=== PATIENT | female | born 1970 | race Caucasian/White ===

== ENCOUNTER 2017-11-18 06:58 | Day surgery (SDC) | payer MEDICAID ==
[2017-11-18] MEDS ORDERED: CEFAZOLIN 1 GM/50 ML (PMX) 50 ML IVPB (09:53)
[2017-11-18] MEDS: CEFAZOLIN 1 GM/50 ML (PMX) 50 ML IVPB (10:16)
[2017-11-18] MEDS: SOD CHLORIDE 0.9% 1,000 ML IV (10:20)
[2017-11-18] MEDS: DIPHENHYDRAMINE 50 MG INJ (10:22)
[2017-11-18] MEDS: LIDOCAINE 1%/EPI 30 ML INJ (10:31)
[2017-11-18] MEDS: FENTAnyl 50 MCG/ML VIAL (10:33)
[2017-11-18] MEDS: POLYMYXIN/BACITRACIN 1L IRRIG IRR (10:40)
[2017-11-18] MEDS: HEPARIN 1000 UNITS/ML 10 ML INJ (10:45)
[2017-11-18] MEDS ORDERED: HYDROCODONE/APAP (5/325) TAB PO (11:30)
== END 2017-11-18 13:55 | disposition home or self-care (01) ==
LOC: SDS 06:58
DX: C50.912 Malignant neoplasm of unspecified site of left female breast (principal)
CPT/HCPCS: 36561; 76942; 93306

== ENCOUNTER 2017-12-03 20:13 | Emergency (ER) | payer MEDICAID ==
[2017-12-04] MEDS: ACETAMINOPHEN 500 MG TAB PO (01:00)
[2017-12-04] MEDS: ONDANSETRON 4 MG INJ IV (01:01)
[2017-12-04] MEDS: SOD CHLORIDE 0.9% 500 ML IV (01:02)
[2017-12-04] MEDS: KETOROLAC 30 MG INJ IV (01:02)
[2017-12-04] MEDS: SOD CHLORIDE 0.9% 1,000 ML IV ×2 (01:02)
[2017-12-04] MEDS: HYDROmorphONE 0.5 MG/0.5 ML SYG IV (01:24)
[2017-12-04 01:36] LABS: ABNORMAL IP MESSAGE 1; HEMATOCRIT 33.9 % (37.0-47.0); HEMOGLOBIN 11.3 g/dl (12.0-16.0); MEAN CORPUSCULAR HEMOGLOBIN 30.4 pg (29.0-33.0); MEAN CORPUSCULAR HGB CONC 33.3 g/dl (32.0-37.0); MEAN CORPUSCULAR VOLUME 91.1 fl (82.0-101.0); MEAN PLATELET VOLUME 10.6 fl (7.4-10.4); NUCLEATED RED BLOOD CELLS% 0.5 /100WBC (0.0-0.0); PLATELET COUNT 199 10^3/UL (140-415); RED BLOOD COUNT 3.72 10^6/ul (4.20-5.40); RED CELL DISTRIBUTION WIDTH 12.5 % (11.5-14.5)
[2017-12-04 01:36] LABS: WHITE BLOOD COUNT 3.7 10^3/ul (4.8-10.8)
[2017-12-04 01:40] LABS: ADD UMIC NO; UR ASCORBIC ACID NEGATIVE (NEGATIVE); UR BILIRUBIN (Dip) NEGATIVE (NEGATIVE); UR BLOOD (Dip) NEGATIVE (NEGATIVE); UR CLARITY SLIGHTLY CLOUDY (CLEAR); UR COLOR YELLOW (YELLOW); UR GLUCOSE (Dip) NEGATIVE (NEGATIVE); UR KETONES (Dip) NEGATIVE (NEGATIVE); UR LEUKOCYTE ESTERASE (Dip) NEGATIVE Leu/ul (NEGATIVE); UR NITRITE (Dip) NEGATIVE (NEGATIVE); UR RBC 2 /HPF (0-5); UR SPECIFIC GRAVITY (Dip) 1.023 (1.003-1.030); UR SQUAMOUS EPITHELIAL CELL FEW /HPF (FEW); UR TOTAL PROTEIN (Dip) NEGATIVE (NEGATIVE); UR UROBILINOGEN (Dip) NEGATIVE (NEGATIVE); UR WBC 3 /HPF (0-5)
[2017-12-04 01:47] LABS: ADD MAN DIFF? YES; POSITIVE DIFF @See below
[2017-12-04 01:59] LABS: LACTIC ACID 1.5 mmol/L (0.5-2.0)
[2017-12-04 02:12] LABS: ALANINE AMINOTRANSFERASE 136 IU/L (13-69); ALBUMIN 4.1 g/dl (3.3-4.9); ALBUMIN/GLOBULIN RATIO 1.24; ALKALINE PHOSPHATASE 85 IU/L (42-121); ANION GAP 18 (8-16); ASPARTATE AMINO TRANSFERASE 50 IU/L (15-46); BLOOD UREA NITROGEN 14 mg/dl (7-20); CALCIUM 9.5 mg/dl (8.4-10.2); CARBON DIOXIDE 25 mmol/L (21-31); CHLORIDE 103 mmol/L (97-110); CREATININE 0.82 mg/dl (0.44-1.00); GLUCOSE 106 mg/dl (70-220); LIPASE 68 U/L (23-300); POTASSIUM 4.4 mmol/L (3.5-5.1); SODIUM 142 mmol/L (135-144); TOTAL PROTEIN 7.4 g/dl (6.1-8.1)
[2017-12-04 02:25] LABS: ANISOCYTOSIS 1+ (0-0); BAND NEUTROPHILS #M 0.3 10^3/ul (0.0-0.6); BAND NEUTROPHILS % (M) 10 % (0-4); EOSINOPHILS % (M) 7 % (0-7); LYMPHOCYTES % (M) 56 % (15-51); METAMYELOCYTES %M 2 % (0-0); MICROCYTOSIS 1+ (0-0); MONOCYTE #M 0.3 10^3/ul (0.3-0.9); MONOCYTES % (M) 9 % (0-11); MYELOCYTES % (M) 1 % (0-0); PLATELET ESTIMATE NORMAL; POLYCHROMASIA 3+ (0-0); PROMYELOCYTES #M 0.1 10^3/ul (0-0); PROMYELOCYTES % (M) 3 % (0-0); REACTIVE LYMPHOCYTES #M 0.1 10^3/ul (0.0-0.0); REACTIVE LYMPHOCYTES% (M) 4 % (0-0); SEG NEUT #M 0.3 10^3/ul (1.6-7.5); SEGMENTED NEUTROPHILS (M) % 8 % (39-77); SMUDGE%M 3 % (0-0)
== END 2017-12-04 03:11 | disposition home or self-care (01) ==
LOC: FTE 20:13 → E/R 12-04 03:11
DX: M54.6 Pain in thoracic spine (principal); T45.1X5A Adverse effect of antineoplastic and immunosuppressive drugs, initial encounter; C50.911 Malignant neoplasm of unspecified site of right female breast; E66.9 Obesity, unspecified; Z68.35 Body mass index [BMI] 35.0-35.9, adult
CPT/HCPCS: 36415; 71045; 74176; 80053; 81001; 81003; 83605; 83690; 85025; 87040; 87086; 87400; 96374; 96375; 99285-25